=== PATIENT | male | born 1995 | race Caucasian/White ===

== ENCOUNTER 2023-12-14 01:52 | Emergency (ER) | payer SELFPAY ==
[~2023-12-14] VITALS: Ht 165.1 cm; Wt 73.6 kg
[2023-12-14 02:08] VITALS: O2SAT 99
[2023-12-14] MEDS: TETANUS, DIPHTHERIA, PERTUSSIS VAC/PF 0.5ML (>10YR OLD) IM ONE (02:57)
[2023-12-14] MEDS: LIDOCAINE HCL/PF 1% 10 MG/ML 5ML VIAL INFIL ONE (02:57)
[2023-12-14] MEDS: BACITRACIN ZINC OINT UDPKT TOP ONE (02:57)
[2023-12-14] MEDS ORDERED: ACET-2708 MT (04:57)
[2023-12-14 05:00] VITALS: BP 112/70; PULSE 69; RESP 19; TEMP 36.94740; O2SAT 99
== END 2023-12-14 08:30 | disposition home or self-care (01) ==
LOC: ER 01:52
DX: S01.81XA Laceration without foreign body of other part of head, initial encounter (principal); F19.90 Other psychoactive substance use, unspecified, uncomplicated; V00.141A Fall from scooter (nonmotorized), initial encounter; X58.XXXA Exposure to other specified factors, initial encounter; Y93.89 Activity, other specified; Y92.89 Other specified places as the place of occurrence of the external cause; Y99.8 Other external cause status
CPT/HCPCS: 90715; 12013; 90471; 99283; J3490; Z7610

== ENCOUNTER 2023-12-22 13:03 | Emergency (ER) | payer MEDICAID ==
[~2023-12-22] VITALS: Ht 167.6 cm; Wt 75.0 kg
[~2023-12-22 13:03] MED LIST: ACET-2708 MT
[2023-12-22 13:08] VITALS: O2SAT 99
[2023-12-22 13:24] VITALS: BP 100/40; PULSE 75; RESP 16; TEMP 98; O2SAT 99
== END 2023-12-22 16:45 | disposition home or self-care (01) ==
LOC: ER 13:21
DX: S01.91XD Laceration without foreign body of unspecified part of head, subsequent encounter (principal); Z48.02 Encounter for removal of sutures; X58.XXXD Exposure to other specified factors, subsequent encounter
CPT/HCPCS: 99281